=== PATIENT | female | born 1980 | race Caucasian/White ===

== ENCOUNTER 2024-06-29 09:41 | Emergency (ER) | payer MEDICAID ==
[~2024-06-29] VITALS: Ht 162.6 cm; Wt 64.0 kg
[2024-06-29 09:59] VITALS: O2SAT 99
--- NOTE | 2024-06-29 10:04 | NUR ---
PT ARRIVED TO ER, WITH C/O SKIN PROBLEM IN FACE. MD AND RN ASSESS PT. PT AAOX4, BREATHING EVEN AND UNLABORED AT ROOM AIR. AMBULATORY WITH STEADY GAIT. PT STATES THAT FEW DAYS AGO SHE WAS TREATED WITH ATB FOR LEFT SIDED TEETH PROBLEM, THEN YESTERDAY PT NOTICED FEW LESIONS LIKE PIMPLES AROUND RIGHT EYE. REDNESS AND MILD SWELLING NOTED IN SITE. PT ATTEMPTED TO POP THEM. NO SECRETIONS OR BLEEDING NOTED. PT DENIES SOB, CHEST PAIN, NAUSEA, VOMITING, FEVER OR CHILLS AT THIS TIME.
[2024-06-29] MEDS ORDERED: CLIN300C12 PO (10:23)
--- NOTE | 2024-06-29 10:26 | NUR ---
PT SAFETY DISCHARGE BY MD, INSTRUCTIONS AND RX WAS GIVEN, PT VERBALIZES UNDERSTANDING. PT INSTRUCTED TO FOLLOW UP WITH DENTIST FOR FURTHER CONTROL, AND RETURN IF SYMPTOMS/SIGNS APPEARS OR GET WORSE. PT STABLE, AAOX4, NO C/O PAIN AT THIS TIME, AMBULATORY WITH STEADY GAIT, LEAVES ER WITH ALL BELONGINGS IN HAND.
== END 2024-06-29 10:26 | disposition home or self-care (01) ==
LOC: ER 09:41
DX: L03.211 Cellulitis of face (principal); Z60.2 Problems related to living alone
CPT/HCPCS: A4606; A4663